=== PATIENT | male | born 1945 | race Caucasian/White ===

== ENCOUNTER → 2017-12-01 09:13 | Outpatient (CLI) | payer OTHER, SELFPAY | PROVIDERS: Family Provider Family Medicine; PCP Family Medicine; Visit Provider Internal Medicine | DX: Z01.812 Encounter for preprocedural laboratory examination (principal) | CPT/HCPCS: 87070; 87205 ==

== ENCOUNTER → 2017-12-01 11:30 | Outpatient (CLI) | payer OTHER, SELFPAY ==
[2017-12-01 12:04] LABS: Add Manual Diff / Slide Review NO; Basophils Percent Auto 0.8 % (0-2); Eosinophils Percent Auto 2.6 % (2-4); Hematocrit 41.2 % (41-53); Hemoglobin 13.8 g/dL (13.5-17.5); Lymphocytes Percent Auto 27.6 % (25-40); Mean Corpuscular HGB Conc 33.4 % (30-36); Mean Corpuscular Hemoglobin 29.4 PG (26-34); Monocytes Percent Auto 10.5 % (3-14); Neutrophils Absolute Auto 3300 /uL (3000-5900); Neutrophils Percent Auto 58.5 % (50-75); Platelet Count 237 X10^3/uL (150-400); Red Blood Cell Count 4.68 X10^6/uL (4.5-5.9); White Blood Cell Count 5.7 X10^3/uL (4.5-11.0)
== END ==
PROVIDERS: Family Provider Family Medicine; PCP Family Medicine; Visit Provider Internal Medicine
DX: Z01.812 Encounter for preprocedural laboratory examination (principal)
CPT/HCPCS: 36415; 85025; 87070; 87205

== ENCOUNTER → 2018-10-12 08:33 | Outpatient (CLI) | payer OTHER, SELFPAY ==
[2018-10-12 09:32] LABS: Alanine Aminotransferase 31 IU/L (21-72); Albumin 4.2 g/dL (3.5-5.0); Albumin Globulin Ratio 1.6 (1.0-2.8); Alkaline Phosphatase 62 U/L (38-126); Aspartate Aminotransferase 23 IU/L (17-59); BUN Creatinine Ratio 34.4 (6-22); Bilirubin Total 0.3 mg/dL (0.2-1.3); Blood Urea Nitrogen 31 mg/dL (9-20); Carbon Dioxide 29 mmol/L (22-32); Chloride 104 mmol/L (98-107); Cholesterol 145 mg/dL (140-199); Estimated Glomerular Filt Rate > 60.0 mL/min (>60); Globulin 2.6 g/dL (1.7-4.1); Glucose 116 mg/dL (80-110); HDL Cholesterol 65 mg/dL (40-60); HEMOLYSIS < 15 (0-50); LDL Cholesterol Calculated 64 mg/dL (<100); Potassium 4.3 mmol/L (3.4-5.1); Sodium 140 mmol/L (137-145); Total Protein 6.8 g/dL (6.3-8.2); Triglycerides 80 mg/dL (35-150)
[2018-10-12 09:56] LABS: Prostate Specific Antigen Scrn 1.02 ng/mL (0.1-4.0)
== END ==
PROVIDERS: PCP Internal Medicine; Visit Provider Internal Medicine
DX: E78.5 Hyperlipidemia, unspecified (principal); R73.9 Hyperglycemia, unspecified; Z12.5 Encounter for screening for malignant neoplasm of prostate
CPT/HCPCS: 36415; 80053; 80061; G0103

== ENCOUNTER 2019-01-18 12:41 | Day surgery (SDC) | payer OTHER, SELFPAY ==
--- NOTE | 2019-01-18 | PATH_ITS ---
[facility] Accession Number: [id number] . 01 Material submitted: . PART A: colon - RIGHT COLON POLYPS PART B: colon - TRANSVERSE COLON POLYP . 02 Diagnosis: A. Biopsy, Polyps, Right Colon: Tubular adenoma involving single biopsy fragment. Single polypoid-shaped fragment of colon mucosa associated with prominent lymphoid aggregate. . B. Biopsy, Transverse Colon Polyp: Tubular adenoma. MRV/01/20/2019 . 02 Electronically signed: . Catrachito Ace MD, Pathologist NPI- [id number] . 01 Gross description: . Part A: RIGHT COLON POLYPS: Received in formalin are 2 fragment(s) of denton, soft tissue measuring 0.5 x 0.3 x 0.2 cm to 0.4 x 0.2 x 0.2 cm submitted entirely in 1 cassette(s) Part B: TRANSVERSE COLON POLYP: Received in formalin is 1 fragment(s) of denton, soft tissue measuring 0.6 x 0.3 x 0.2 cm submitted entirely in 1 cassette(s) /CKI /CKI . 02 Pathologist provided ICD-10: D12.2 . 02 CPT . 008292, [id number] Performed at: 01 [facility] [address], [place], [place] [id number] MD Jered Stokes MD Phone: [phone] Performed at: 02 [facility] [address] [place], [place] [id number] MD Morenita Gibson MD Phone: [phone]
[2019-01-18 12:58] VITALS: BP 142/78; PULSE 63; RESP 14; TEMP 36.2; O2SAT 98; BMI 31.3
--- NOTE | 2019-01-18 14:38 | SUR.PREOP ---
Sleeping with lights dimmed, resp unlabored.
--- NOTE | 2019-01-18 15:34 | PM.HP.1 ---
History of Present Illness Date Patient Seen: 01/18/19 Time Patient Seen: 15:35 Chief complaint: [id number] Narrative: 73-year-old man presents approximately 10 years after last screening colonoscopy -this appeared to have an adenomatous polyp within it, is 5 years overdue for colonoscopy No family history of colon or rectal cancer Tolerated prep well No abdominal complaints Patient History Medical History (Updated 09/30/18 @ 14:19 by Bobby Salazar MD) H/O adenomatous polyp of colon (Inactive) Intraventricular conduction delay (Inactive 10/10/15) Benign prostatic hyperplasia with lower urinary tract symptoms (Chronic 10/10/15) Hyperglycemia (Chronic 09/13/15) Mild intermittent asthma without complication (Chronic 09/13/15) Surgical History (Updated 09/30/18 @ 14:25 by Bobby Salazar MD) S/P shoulder replacement (Inactive ~03/2018) History of third molar tooth extraction Family History (Updated 09/12/15 @ 00:00 by Conversion Provider) Brother Pacemaker Father Pacemaker Heart disease Stroke Social History household members: spouse Smoking Status: Never smoker Family & Social History Family History (Updated 09/12/15 @ 00:00 by Conversion Provider) Brother Pacemaker Father Pacemaker Heart disease Stroke Social History: household members spouse Tobacco & Substance use: Smoking Status Never smoker Meds Home Medications Medication Instructions Recorded Confirmed Type [aspirin] 325 mg #0 09/17/17 10/21/18 History [quericin] #0 09/17/17 10/21/18 History albuterol sulfate HFA 90 See Rx Instructions INHALATION 09/30/18 01/18/19 Rx mcg/actuation aerosol inhaler Q4-6H PRN #8.5 gram rosuvastatin 10 mg tablet 10 mg PO QDAY #90 tab 09/30/18 01/18/19 Rx tamsulosin 0.4 mg capsule 0.4 mg PO DAILY #90 cap 09/30/18 01/18/19 Rx metoprolol succinate ER 25 mg 12.5 mg PO DAILY #30 tab 10/29/18 01/18/19 Rx tablet,extended release 24 hr Allergies Allergy/AdvReac Type Severity Reaction Status Date / Time simvastatin AdvReac Mild memory Verified 10/21/18 15:11 issues, okay with Crestor Review of Systems Constitutional Constitutional: Denies fever(s) Eyes Eyes: Denies bulging eyes ENT Ears, Nose, Mouth, and Throat: No lip swelling Cardiovascular Cardiovascular: Denies generalize swelling Respiratory Respiratory: Denies stridor Gastrointestinal Gastrointestinal: Denies coffee ground emesis Musculoskeletal Musculoskeletal: Denies loss of height Integumentary/Breasts Skin/Breast: Denies wounds Neurologic Neurologic: Denies abnormal speech and Denies confusion Psychiatric Psychiatric: Denies confusion Endocrine Endocrine: Denies deepening of the voice Hematologic/Lymphatic Hematologic/Lymphatic: Denies lymphadenopathy Allergic/Immunologic Allergic/Immunologic: Denies lip swelling Exam Vital Signs (past 8 hours): - 01/18/19 12:58 Temperature 97.1 F L Pulse Rate 63 Respiratory Rate 14 Blood Pressure 142/78 H Pulse Oximetry 98 Oxygen Delivery Method Room Air Const General: cooperative and healthy appearing Orientation: alert HENMA Head: normal to inspection Nose: nares normal Mouth: oral mucosae normal and lip normal Eyes Eyelids: eyelids normal Conjunctivae: conjunctivae normal Sclera: sclerae normal Neck Neck: supple and other (No thyromegally) Chest Chest: other (LCTAB , regular respiratory effort) Cardio Rhythm: regular rhythm Heart Sounds: S1 normal, S2 normal, no gallops, no murmurs and no rubs GI Other: Abdomen soft nontender nondistended Skin General: no rashes or lesions noted Neuro General: alert and awake Psych Appearance: grossly normal Affect: normal affect Assessment & Plan Assessment & Plan narrative: 73-year-old man approximately 5 years overdue for screening colonoscopy Risks and benefits of procedure discussed Risks including bleeding, , perforation, hypoxia, missed lesions all discussed All questions answered Patient rated proceed
[2019-01-18] MEDS: MIDAZOLAM 5 MG/5 ML VIAL IV (15:43)
[2019-01-18] MEDS: fentaNYL 250 MCG/5 ML INJ IV (15:43)
--- NOTE | 2019-01-18 15:47 | SUR.OPER ---
TOLERATED WELL, PATIENT STATES HE DOES NOT HAVE A TRUE ALLERGY AND DOES NOT TAKE A BETA DELIA ANY MORE, VITAL SIGNS STABLE SEE STRIPS OCCASIONAL PVC
[2019-01-18] MEDS: GLUCAGON,HUMAN RECOMBINANT 1 MG/ML VIAL IV (16:03)
--- NOTE | 2019-01-18 16:14 | PM.OP.ENDO ---
Operative Date/Time/Diagnoses Date of procedure: 01/18/19 Time of procedure: 16:14 Pre-op diagnosis: Colorectal cancer screening Post-op diagnosis: same Procedure & Clinicians Study performed: Screening colonoscopy-complete Right colon polypectomy x2 cold biopsy forceps Transverse colon polypectomy x1 cold biopsy forceps Same procedure as scheduled: Yes Indications: 73-year-old man presents 10 years after last screening colonoscopy -due to prior history of adenomatous colon polyps -5 years now overdue Surgeon: Simeon Helton Procedure Notes SCOAP/Timeout: Completed Procedure in detail: Patient was brought to the endoscopy suite, a time-out was completed. He was sedated over the entire course of the procedure with 5 mg of midazolam and 150 micro g of fentanyl. A digital rectal exam was performed which was notable for a large soft prostate. No mucosal based lesions. 160 cm colonoscope was advanced through the rectum and folds of the colon until the cecum was encountered. There was a floppy sigmoid colon which did take an unusual amount of time to transit through. The cecum was identified via a ileocecal valve which was seen to be admitting succus, a appendiceal orifice as well was visualized. Colonoscope was then slowly withdrawn. Visualizing the mucosa 2 small sessile polyps were removed via a Jumbo biopsy forcep within the right colon. An additional small sessile polyp was removed in the transverse colon again with the Jumbo biopsy forceps. The remainder of the colon rectum was without polyps however there was a moderate amount of sigmoid diverticulosis. The scope was retroflexed in the distal rectum no additional lesions were encountered Prep was adequate Scope withdrawal time: 22 Sedation minutes: 34 Specimen(s): other (Right colon polyps x2, transverse colon polyp x1) Complications: none Impression: Enlarged prostate Sigmoid diverticulosis -moderate Right colon polyp polyp x2, transverse colon polyp x1 -status post removal Recommendations: Colonscopy in 5 years Plan for aftercare: PACU then home Follow up: as needed Disposition: PACU
[2019-01-18 16:21] VITALS: BP 125/56; PULSE 65; RESP 22; O2SAT 97
[2019-01-18 16:25] VITALS: BP 141/59; PULSE 65; RESP 12; O2SAT 97
[2019-01-18 16:30] VITALS: BP 135/60; PULSE 62; RESP 17; O2SAT 96
[2019-01-18 16:45] VITALS: BP 123/67; PULSE 63; RESP 18; TEMP 36.4; O2SAT 96
== END 2019-01-18 17:06 | disposition home or self-care (01) ==
LOC: ENDO 12:42
PROVIDERS: PCP Internal Medicine; Visit Provider Surgery
PROC: 0DJD8ZZ Inspection of Lower Intestinal Tract, Via Natural or Artificial Opening Endoscopic (ICD-10-PCS; CPT 45378; principal; 2019-01-18 14:00)
DX: Z12.11 Encounter for screening for malignant neoplasm of colon (principal); K57.30 Diverticulosis of large intestine without perforation or abscess without bleeding; N40.1 Benign prostatic hyperplasia with lower urinary tract symptoms; D12.2 Benign neoplasm of ascending colon
CPT/HCPCS: 45380; 99152; 99153; J1610; J2250; J3010

== ENCOUNTER → 2019-07-04 10:55 | Outpatient (CLI) | payer OTHER, SELFPAY ==
--- NOTE | 2019-07-25 17:06 | PM.CARDMON.1 ---
Personnel Security Specialist Report Referral & Results Date Patient Seen: 07/04/19 Requesting provider: Bobby Salazar Indication: Bradycardia Duration of monitoring (days): 14 Diary information: There were 2 patient triggered events and 1 diary entry These events were all associated with sinus rhythm, PVCs, and ventricular bigeminy Data: Minimum heart rate was 22 beats per minute at 02:13 on 07/11/2019 during a run of second-degree AV block type 1. Maximum overall heart rate was 182 beats per minute at 16:56 on 07/12/2019 during a run of ventricular tachycardia that was 16 beats long Minimum sinus heart rate was 51 beats per minute at 04:32 on 07/15/2019 and maximum sinus heart rate was 133 beats per minute at 01:25 on 07/12/2019 Less than 1% of identified beats were supraventricular ectopic in origin Patient had occasional PVCs that were about 4.9% of identified beats including some runs of ventricular bigeminy and ventricular trigeminy Patient had several runs of ventricular tachycardia, specifically 38 runs longest of which was 16 beats which was also the fastest run. There were 11 runs of supraventricular tachycardia the longest lasting 9 beats at a rate of 133 beats per minute There are several episodes of second-degree AV block type 1. This was identified by the computer is potentially third-degree AV block but upon closer inspection appears to be most likely second-degree AV block type 1 although cannot rule out second-degree AV block type to given that there episodes where every other beat was blocked. However patient did not identify these episodes with symptoms via patient triggered events or diary entries Impression: Significant burden of ventricular dysrhythmia as above Significant interventricular conduction block as well with resulting bradycardia. Suggest clinical correlation and probable consultation with supervisor cabinetmaker
== END ==
PROVIDERS: PCP Internal Medicine; Visit Provider Family Medicine
DX: I49.3 Ventricular premature depolarization (principal)
CPT/HCPCS: 0296T; 0298T

== ENCOUNTER → 2019-07-05 07:12 | Outpatient (CLI) | payer OTHER, SELFPAY ==
--- NOTE | 2019-07-05 07:13 | DI.ECHO.S_ITS ---
[place] +---------+ [facility] +---------+ : : [address] : [address] : : : : [id number] : : : : Phone: [phone]+ Echocardiogram Report + + :Name: JAVIER HAMILTON Study Date: 07/05/2019 Height: 70 in : :[facility] Weight: 220 lb : : Gender: Male BSA: 2.2 m2 : :: 1945 Age: 74 yrs BP: 144/78 mmHg: :Reason For Study: Arrhythmia : :Ordering Physician: Dr. Rosales : :Martin Performed By: Royce Sampson : :Referring: FERMIN MUELLER R : + + Interpretation Summary Left ventricular systolic function is normal. There is trace mitral regurgitation. The aortic root is borderline dilated. Procedure: A two-dimensional transthoracic echocardiogram with color flow and Doppler was performed. The study quality was technically adequate. There is no prior echocardiogram noted for this patient. The heart rate ranged between 38-95 bpm during the study. Left Ventricle: The left ventricle is normal in size. There is mild concentric left ventricular hypertrophy. Left ventricular systolic function is normal. The ejection fraction is estimated to be 55-60%. Left ventricular wall motion is normal. Right Ventricle: The right ventricle is borderline dilated. The right ventricular systolic function is normal. Atria: The left atrium is mildly dilated. The right atrium is mildly dilated. The interatrial septum is intact with no evidence for an atrial septal defect. Mitral Valve: The mitral valve is normal in structure and function. There is trace mitral regurgitation. Aortic Valve: The aortic valve is trileaflet. The aortic valve opens well. No aortic regurgitation is present. Tricuspid Valve: The tricuspid valve is normal in structure and function. There is trace tricuspid regurgitation. Pulmonary artery pressures cannot be estimated because of the lack of a measurable TR jet velocity. Pulmonic Valve: The pulmonic valve is not well visualized. There is trace pulmonic regurgitation. Great Vessels: The aortic root is borderline dilated. The dimensions of the ascending aorta are normal. The pulmonary artery is normal size. The IVC is dilated (diameter is greater than 2.1 cm) yet it collapses greater than 50% with a sniff. This suggests a right atrial pressure of 8 mm Hg. Pericardium/ Pleura There is no pericardial effusion. There is no pleural effusion. MMode/2D Measurements & Calculations LVIDd: 5.0 cm LVOT diam: 2.4 cm LVIDs: 3.3 cm Ao root diam: 3.7 cm FS: 34.8 % asc Aorta Diam: 3.5 cm EPSS: 0.90 cm IVSd: 1.2 cm LVPWd: 1.1 cm LV meza. diameter/BSA (cm/m^2): 2.3 LV sys. diameter/BSA (cm/m^2): 1.5 LA A2 area: 22.8 cm2 RA long axis: 5.4 cm LA A4 area: 26.9 cm2 RA area: 21.3 cm2 LA length (vol): 6.0 cm RA vol: 70.8 ml LA vol: 86.5 ml RA : 32.6 ml/m2 LA vol index: 39.8 ml/m2 TAPSE: 3.9 cm Doppler Measurements & Calculations Ao V2 max: 138.3 cm/sec LVOT Max Fany: 107.6 cm/sec Ao V2 mean: 96.4 cm/sec LV V1 max P.6 mmHg Ao max P.6 mmHg LV V1 VTI: 23.0 cm Ao mean P.3 mmHg OLEG(I,D): 3.3 cm2 Ao V2 VTI: 30.6 cm OLEG(V,D): 3.4 cm2 sev ratio: 0.75 OLEG indexed to BSA (cm^2/m^2): 1.5 MV E max fany: 72.0 cm/sec PA V2 max: 61.1 cm/sec MV A max fany: 111.1 cm/sec PA V2 mean: 43.2 cm/sec MV E/A: 0.65 PA mean P.84 mmHg Med Peak E' Fany: 4.7 cm/sec PA Accel Time: 0.10 sec E/E' med: 15.2 Lat Peak E' Fany: 6.0 cm/sec E/E' lat: 12.1 E/e' average: 13.6 MV dec time: 0.25 sec SV(LVOT): 101.5 ml Reading Physician:01:43 PM
== END ==
PROVIDERS: PCP Internal Medicine; Visit Provider Internal Medicine
DX: I49.9 Cardiac arrhythmia, unspecified (principal); I45.9 Conduction disorder, unspecified
CPT/HCPCS: 93306

== ENCOUNTER → 2020-03-05 07:47 | Outpatient (CLI) | payer OTHER, SELFPAY ==
[2020-03-05 08:27] LABS: BUN Creatinine Ratio 18.9 (6-22); Blood Urea Nitrogen 20 mg/dL (9-20); Carbon Dioxide 33 mmol/L (22-32); Chloride 102 mmol/L (98-107); Estimated Glomerular Filt Rate > 60.0 mL/min (>60); Glucose 103 mg/dL (80-110); HEMOLYSIS < 15 (0-50); Potassium 4.9 mmol/L (3.4-5.1); Sodium 137 mmol/L (137-145)
== END ==
PROVIDERS: PCP Internal Medicine; Referring Provider Internal Medicine; Visit Provider Internal Medicine
DX: I49.3 Ventricular premature depolarization (principal)
CPT/HCPCS: 36415; 80048

== ENCOUNTER → 2020-07-18 09:54 | Outpatient (CLI) | payer OTHER, SELFPAY ==
[2020-07-18] MEDS: COVID-19 VACC #1, MRNA(MOD) 100 MCG/0.5 ML VIAL IM (10:01)
== END ==
PROVIDERS: PCP Internal Medicine; Visit Provider Internal Medicine
DX: Z23 Encounter for immunization (principal)
CPT/HCPCS: 0011A; 91301

== ENCOUNTER → 2020-08-15 09:54 | Outpatient (CLI) | payer OTHER, SELFPAY ==
[2020-08-15] MEDS: COVID-19 VACC #2, MRNA(MOD) 100 MCG/0.5 ML VIAL IM (10:01)
== END ==
PROVIDERS: PCP Internal Medicine; Visit Provider Internal Medicine
DX: Z23 Encounter for immunization (principal)
CPT/HCPCS: 0012A; 91301

== ENCOUNTER → 2022-01-08 08:57 | Outpatient (CLI) | payer OTHER, SELFPAY ==
[2022-01-08 09:45] LABS: COVID19 -Nasal RAPID Negative (Negative)
== END ==
PROVIDERS: PCP Internal Medicine; Referring Provider Internal Medicine Cardiovascular Disease; Visit Provider Internal Medicine Cardiovascular Disease
DX: Z20.822 Contact with and (suspected) exposure to COVID-19 (principal)
CPT/HCPCS: 87635; C9803

== ENCOUNTER → 2022-01-09 14:02 | Outpatient (CLI) | payer OTHER, SELFPAY ==
--- NOTE | 2022-01-15 10:58 | PM.PFT.1 ---
Pulmonary Function Test Referral & Results Date Patient Seen: 01/09/22 Requesting provider: Shade Kevin Results: The spirometry demonstrates an FVC of 3.58 L which is 85% of predicted. The FEV1 was measured at 2.59 L which is 86% of predicted. The FEV1/FVC ratio was 72 which is 100% of predicted. Following the administration of bronchodilator there was a 25% improvement in FEF 25-75%. Lung volumes show an SVC of 3.97 L which is 88% of predicted. The diffusing capacity was measured at 25.19 which is 77% of predicted. No hemoglobin value was provided, so no correction for potential anemia could be made, if appropriate. The maximum voluntary ventilation was normal Interpretation: This study demonstrates probably normal spirometry. There is some evidence of benefit following bronchodilator in small airway flow as above based on improvement in FEF 25-75% There is a minimal reduction diffusing capacity suggesting the possibility of disease at the capillary alveolar level Clinical correlation suggested
== END ==
PROVIDERS: PCP Internal Medicine; Referring Provider Internal Medicine Cardiovascular Disease; Visit Provider Internal Medicine Cardiovascular Disease
DX: I45.4 Nonspecific intraventricular block (principal); J98.8 Other specified respiratory disorders
CPT/HCPCS: 94060; 94726; 94729

== ENCOUNTER → 2022-01-27 09:13 | Outpatient (CLI) | payer OTHER, SELFPAY ==
--- NOTE | 2022-01-27 | DI.ECHO.S_ITS ---
[place] +---------+ Hospital +---------+ : : [address] : : : [address] : : : : [id number] : : : : Phone: [phone] : [phone]+ Echocardiogram Report + + :Name: JAVIER HAMILTON Study Date: 01/27/2022 Height: 70 in : :[facility] ReadingLocation: Weight: 220 lb : : Gender: Male BSA: 2.2 m2 : :: 1945 Age: 76 yrs BP: 142/73 mmHg: :Reason For Study: Intraventricular block : :Ordering Physician: Chano, : :Juany Performed By: Kris Ortiz : :Referring: Juany Madden : + + Interpretation Summary 1) Normal left ventricular size and thickness with moderately to severely reduced function (EF 30-35%). 2) The right ventricle is normal in size and function. 3) No significant valvular abnormalities. 4) Compared to the Echo done 07/05/2019, LV function has decreased from normal to moderately to severely reduced function. Procedure: A two-dimensional transthoracic echocardiogram with color flow and Doppler was performed. The study quality was technically adequate. Comparison is made with the echocardiogram of 07/05/2019. The patient has a paced rhythm. Left Ventricle: The left ventricle is normal in size and wall thickness. Left ventricular systolic function is moderate to severely reduced. The ejection fraction is estimated to be 30-35%. There is moderate to severe global hypokinesis of the left ventricle. Diastolic function could not be accurately assessed due to paced rhythm. Right Ventricle: The right ventricle is normal in size and function. Atria: The left atrium is moderately dilated. Right atrial size is normal. The interatrial septum grossly appears intact with no obvious evidence for an atrial septal defect. The atrial septum is aneurysmal. Mitral Valve: The mitral valve is normal in structure and function. There is mild mitral regurgitation. Aortic Valve: The aortic valve is normal in structure and function. There is no aortic valve stenosis. No aortic regurgitation is present. Tricuspid Valve: The tricuspid valve is normal in structure and function. There is trace tricuspid regurgitation. The right ventricular systolic pressure is estimated to be at least 27 mmHg based on an estimated right atrial pressure of 3 mm Hg. Pulmonic Valve: The pulmonic valve is normal in structure and function. There is a trace or physiologic amount of pulmonic regurgitation. Great Vessels: The aortic root is normal size. The dimensions of the ascending aorta are normal. The IVC is of normal diameter and collapses greater than 50% with a sniff. This suggests a low right atrial pressure of 3 mm Hg. Pericardium/ Pleura There is no pericardial effusion. There is no pleural effusion. MMode/2D Measurements & Calculations LVIDd: 5.9 cm LVOT diam: 2.4 cm LVIDs: 4.8 cm Ao root diam: 3.9 cm FS: 18.9 % asc Aorta Diam: 3.4 cm IVSd: 1.2 cm LVPWd: 0.96 cm LV meza. diameter/BSA (cm/m^2): 2.7 LV sys. diameter/BSA (cm/m^2): 2.2 LA A2 area: 18.6 cm2 RA long axis: 4.6 cm LA A4 area: 25.2 cm2 RA area: 14.9 cm2 LA length (vol): 5.3 cm RA vol: 41.2 ml LA vol: 75.5 ml RA : 18.9 ml/m2 LA vol index: 34.7 ml/m2 TAPSE: 3.4 cm Doppler Measurements & Calculations Ao V2 max: 133.0 cm/sec LVOT Max Declan: 96.0 cm/sec Ao V2 mean: 94.6 cm/sec LV V1 max P.7 mmHg Ao max P.1 mmHg LV V1 VTI: 19.3 cm Ao mean P.9 mmHg OLEG(I,D): 3.4 cm2 Ao V2 VTI: 25.2 cm OLEG(V,D): 3.2 cm2 sev ratio: 0.77 OLEG indexed to BSA (cm^2/m^2): 1.5 MV E max declan: 42.3 cm/sec TR max declan: 242.2 cm/sec MV A max declan: 99.7 cm/sec TR max P.5 mmHg MV E/A: 0.42 Med Peak E' Declan: 2.7 cm/sec E/E' med: 15.9 Lat Peak E' Declan: 2.5 cm/sec E/E' lat: 16.9 E/e' average: 16.4 MV dec time: 0.36 sec SV(LVOT): 84.8 ml Reading Physician:02:05 PM
== END ==
PROVIDERS: PCP Internal Medicine; Referring Provider Nurse Practitioner Acute Care; Visit Provider Nurse Practitioner Acute Care
DX: I34.0 Nonrheumatic mitral (valve) insufficiency (principal); I45.4 Nonspecific intraventricular block; Z95.0 Presence of cardiac pacemaker
CPT/HCPCS: 93306

== ENCOUNTER → 2022-09-30 08:27 | Outpatient (CLI) | payer OTHER, SELFPAY ==
[2022-09-30 09:16] LABS: Alanine Aminotransferase 28 IU/L (<50); Albumin Globulin Ratio 1.6 (1.0-2.8); Alkaline Phosphatase 74 U/L (38-126); Aspartate Aminotransferase 23 IU/L (17-59); BUN Creatinine Ratio 26.5 (6-22); Bilirubin Total 0.4 mg/dL (0.2-1.3); Blood Urea Nitrogen 26 mg/dL (9-20); Calcium 8.8 mg/dL (8.4-10.2); Carbon Dioxide 28 mmol/L (22-32); Chloride 101 mmol/L (98-107); Cholesterol 168 mg/dL (140-199); Estimated Glomerular Filt Rate > 60 mL/min (>60); Globulin 2.5 g/dL (1.7-4.1); Glucose 105 mg/dL (80-110); HDL Cholesterol 97 mg/dL (40-60); HEMOLYSIS < 15 (0-50); LDL Cholesterol Calculated 60 mg/dL (<100); Potassium 4.6 mmol/L (3.4-5.1); Sodium 137 mmol/L (137-145); Total Protein 6.5 g/dL (6.3-8.2); Triglycerides 56 mg/dL (35-150)
[2022-09-30 09:50] LABS: Thyroid Stimulating Hormone 1.88 uIU/mL (0.47-4.68)
== END ==
PROVIDERS: PCP Internal Medicine; Referring Provider Internal Medicine; Visit Provider Internal Medicine
DX: E78.2 Mixed hyperlipidemia (principal); I48.0 Paroxysmal atrial fibrillation; J45.20 Mild intermittent asthma, uncomplicated; Z79.899 Other long term (current) drug therapy
CPT/HCPCS: 36415; 80053; 80061; 84439; 84443

== ENCOUNTER → 2023-07-02 16:37 | Outpatient (CLI) | payer OTHER, SELFPAY ==
--- NOTE | 2023-07-02 16:40 | DI.RAD.S_ITS ---
PROCEDURE: XR ABDOMEN MIN 2V INDICATIONS: discomfort LUQ after pacemaker surgery in Aug TECHNIQUE: 2 views of the abdomen were acquired. COMPARISON: None. FINDINGS: Surgical changes and devices: None. Bowel: The bowel gas pattern is normal. No evidence of bowel obstruction. Expected stool projects over the colon. Soft tissues: Visualized solid organ contours appear normal in size. No suspicious abdominal calcifications. 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 on 07/03/2023 at 11:31 Approved by: Antoine Smith M.D. on 07/03/2023 at 11:37
== END ==
PROVIDERS: PCP Internal Medicine; Referring Provider Physician Assistant; Visit Provider Physician Assistant
DX: R10.9 Unspecified abdominal pain (principal)
CPT/HCPCS: 74019

== ENCOUNTER → 2023-10-22 15:28 | Outpatient (CLI) | payer OTHER, SELFPAY ==
[2023-10-22 17:00] LABS: Add Manual Diff / Slide Review NO; Basophils Absolute Auto 100 /uL (0-100); Basophils Percent Auto 1.1 % (0-2); Eosinophils Absolute Auto 300 /uL (0-450); Eosinophils Percent Auto 4.9 % (2-4); Hematocrit 36.4 % (41-53); Hemoglobin 11.9 g/dL (13.5-17.5); Lymphocytes Absolute Auto 1400 /uL (1100-4500); Lymphocytes Percent Auto 23.7 % (25-40); Mean Corpuscular HGB Conc 32.7 % (30-36); Mean Corpuscular Volume 82.8 fL (80-100); Monocytes Absolute Auto 600 /uL (0-900); Monocytes Percent Auto 9.7 % (3-14); Neutrophils Absolute Auto 3500 /uL (1500-7000); Neutrophils Percent Auto 60.6 % (50-75); Platelet Count 224 X10^3/uL (150-400); White Blood Cell Count 5.7 X10^3/uL (4.5-11.0)
[2023-10-22 17:41] LABS: HEMOLYSIS < 15 (0-50); Iron 60 ug/dL (49-181)
[2023-10-22 17:52] LABS: Percent Iron Saturation 18 % (20-50); Total Iron Binding Capacity 330 ug/dL (261-462); Transferrin 258 mg/dL (206-381)
[2023-10-22 18:12] LABS: Alanine Aminotransferase 19 IU/L (<50); Albumin 4.2 g/dL (3.5-5.0); Albumin Globulin Ratio 1.6 (1.0-2.8); Alkaline Phosphatase 82 U/L (38-126); Aspartate Aminotransferase 23 IU/L (17-59); BUN Creatinine Ratio 26.3 (6-22); Bilirubin Total 0.5 mg/dL (0.2-1.3); Blood Urea Nitrogen 30 mg/dL (9-20); Calcium 9.1 mg/dL (8.4-10.2); Carbon Dioxide 28 mmol/L (22-32); Chloride 108 mmol/L (98-107); Estimated Glomerular Filt Rate > 60 mL/min (>60); Globulin 2.6 g/dL (1.7-4.1); Glucose 96 mg/dL (80-110); HEMOLYSIS < 15 (0-50); Potassium 4.1 mmol/L (3.4-5.1); Sodium 140 mmol/L (137-145); Total Protein 6.8 g/dL (6.3-8.2)
== END ==
PROVIDERS: PCP Internal Medicine; Referring Provider Internal Medicine; Visit Provider Internal Medicine
DX: D64.9 Anemia, unspecified (principal); E78.2 Mixed hyperlipidemia
CPT/HCPCS: 36415; 80053; 83540; 83550; 85025

== ENCOUNTER → 2023-10-22 15:31 | Outpatient (CLI) | payer OTHER, SELFPAY ==
--- NOTE | 2023-10-22 | DI.ECHO.S_ITS ---
[place] +---------+ Hospital : : [address] : : [place] : : [id number] : : Phone: [phone] Echocardiogram Report + + :Name: JAVIER HAMILTON Study Date: 10/22/2023 Height: 70 in : :[facility] ReadingLocation: Weight: 220 lb : : Gender: Male BSA: 2.2 m2 : :: 1945 Age: 78 yrs BP: 154/76 mmHg: :Reason For Study: DILATED CARDIOMYOPATHY : :Ordering Physician: MATT, : :GIGI Performed By: Albino Robbins : :Referring: GIGI GUTIERREZ : + + Interpretation Summary The ejection fraction is estimated to be 35-40%. There is mild to moderate global hypokinesis of the left ventricle. There is inferior wall severe hypokinesis. There has been no significant change since the previous exam. The right ventricle is mildly dilated. There is a pacemaker lead in the right ventricle. The right ventricular systolic pressure is estimated to be at least 29 mmHg based on an estimated right atrial pressure of 8 mm Hg. Procedure: A two-dimensional transthoracic echocardiogram with color flow and Doppler was performed. The study quality was technically adequate. Comparison is made with the echocardiogram of 01/27/2022. The heart rate ranged between 60-84 bpm during the study. Left Ventricle: The left ventricle is mild-moderately dilated. There is mild concentric left ventricular hypertrophy. The ejection fraction is estimated to be 35-40%. There has been no significant change since the previous exam. There is mild to moderate global hypokinesis of the left ventricle. There is inferior wall severe hypokinesis. Right Ventricle: The right ventricle is mildly dilated. There is a pacemaker lead in the right ventricle. The right ventricular systolic function is normal. Atria: The left atrium is severely dilated. The right atrium is mildly dilated. There is a catheter/pacemaker lead seen in the right atrium. Mitral Valve: The mitral valve is normal in structure and function. There is no mitral valve stenosis. There is trace mitral regurgitation. Aortic Valve: The aortic valve is trileaflet. There is no aortic valve stenosis. No aortic regurgitation is present. Tricuspid Valve: The tricuspid valve is normal in structure and function. There is no tricuspid stenosis. There is trace tricuspid regurgitation. The right ventricular systolic pressure is estimated to be at least 29 mmHg based on an estimated right atrial pressure of 8 mm Hg. Pulmonic Valve: The pulmonic valve is not well visualized. There is no pulmonic valvular stenosis. There is no pulmonic valvular regurgitation. Great Vessels: The aortic root is borderline dilated. The dimensions of the ascending aorta are normal. The IVC is dilated (diameter is greater than 2.1 cm) yet it collapses greater than 50% with a sniff. This suggests a right atrial pressure of 8 mm Hg. Pericardium/ Pleura There is no pericardial effusion. There is no pleural effusion. MMode/2D Measurements & Calculations LVIDd: 6.6 cm LVOT diam: 2.4 cm LVIDs: 5.3 cm Ao root diam: 3.7 cm FS: 19.8 % asc Aorta Diam: 3.4 cm IVSd: 1.1 cm Ao Arch Diam (Prox Trans): 3.1 cm LVPWd: 1.2 cm LV meza. diameter/BSA (cm/m^2): 3.0 LV sys. diameter/BSA (cm/m^2): 2.4 LA A2 area: 25.4 cm2 RA long axis: 5.5 cm LA A4 area: 24.0 cm2 RA area: 19.2 cm2 LA length (vol): 5.6 cm RA vol: 57.5 ml LA vol: 92.7 ml RA : 26.4 ml/m2 LA vol index: 42.7 ml/m2 IVC diam: 2.1 cm RVD1 (basal): 4.1 cm RVD2 (mid): 2.7 cm TAPSE: 3.2 cm Doppler Measurements & Calculations Ao V2 max: 156.2 cm/sec LVOT Max Declan: 102.0 cm/sec Ao V2 mean: 112.5 cm/sec LV V1 max P.2 mmHg Ao max P.8 mmHg LV V1 VTI: 22.3 cm Ao mean P.6 mmHg OLEG(I,D): 2.7 cm2 Ao V2 VTI: 36.4 cm OLEG(V,D): 2.9 cm2 sev ratio: 0.61 OLEG indexed to BSA (cm^2/m^2): 1.2 MV E max declan: 44.4 cm/sec TR max declan: 231.4 cm/sec MV A max declan: 104.0 cm/sec TR max P.6 mmHg MV E/A: 0.43 PA V2 max: 99.1 cm/sec Med Peak E' Declan: 3.9 cm/sec PA V2 mean: 71.3 cm/sec E/E' med: 11.4 PA mean P.3 mmHg Lat Peak E' Declan: 3.8 cm/sec PA pr(Accel): 39.6 mmHg E/E' lat: 11.7 E/e' average: 11.6 MV dec time: 0.29 sec SV(LVOT): 98.6 ml Reading Physician:10:45 AM
== END ==
PROVIDERS: PCP Internal Medicine; Referring Provider Internal Medicine Cardiovascular Disease; Visit Provider Internal Medicine Cardiovascular Disease
DX: I42.0 Dilated cardiomyopathy (principal); Z95.0 Presence of cardiac pacemaker; D64.9 Anemia, unspecified; E78.2 Mixed hyperlipidemia
CPT/HCPCS: 36415; 80053; 83540; 83550; 85025; 93306

== ENCOUNTER → 2023-11-04 10:41 | Outpatient (CLI) | payer OTHER, SELFPAY | PROVIDERS: PCP Internal Medicine; Visit Provider Nurse Practitioner Family | DX: J02.9 Acute pharyngitis, unspecified (principal) | CPT/HCPCS: 87070 ==

== ENCOUNTER → 2023-12-23 07:40 | Outpatient (CLI) | payer OTHER, SELFPAY ==
--- NOTE | 2023-12-23 07:41 | DI.ECHO.S_ITS ---
[facility]---------+ [facility] : : [address] : : [place] : : [id number] : : Phone: [phone] Echocardiogram Report + + :Name: JAVIER HAMILTON Study Date: 12/23/2023 Height: 70 in : :Hospital ReadingLocation: Weight: 218 lb : : Gender: Male BSA: 2.2 m2 : :: 1945 Age: 78 yrs BP: 141/74 mmHg: :Reason For Study: DILATED CARDIOMYOPATHY : :Ordering Physician: Sylvester GUTIERREZformed By: Melani Alvarez : :Referring: GIGI GUTIERREZ : + + Interpretation Summary 1. This is a limited echocardiogram. 2. The left ventricular contractility is moderately compromised. Estimated ejection fraction is approximately 35 to 40%. There is severe hypokinesis of the inferior segment. No LVH. Unable to comment on diastolic function. 3. The right ventricular contractility is normal. 4. The left ventricular cavity appears to be dilated. 5. Hyper echogenic linear densities noted in the right atrium and right ventricle consistent with pacemaker wires. No other obvious intracardiac masses nor thrombi appreciated. 6. No hemodynamically significant pericardial effusion identified. Conclusion: Moderately compromised left ventricular systolic function. When compared with previous echocardiogram, no significant changes have occurred. Procedure: Images were not obtained from all of the standard acoustic windows due to the limited scope of the study. The study quality was technically adequate. Comparison is made with the echocardiogram of 10/22/2023. The patient had occasional PVCs during the exam. The heart rate ranged between 60-65 bpm during the study. Left Ventricle: The left ventricle is mild-moderately dilated. There is normal left ventricular wall thickness. The ejection fraction is estimated to be 35-40%. Right Ventricle: The right ventricle is normal in size and function. There is a pacemaker lead in the right ventricle. Atria: There is a catheter/pacemaker lead seen in the right atrium. Pericardium/ Pleura There is no pericardial effusion. There is no pleural effusion. MMode/2D Measurements & Calculations LVIDd: 6.7 cm RVD1 (basal): 3.7 cm LVIDs: 5.3 cm RVD2 (mid): 2.1 cm FS: 19.9 % TAPSE: 2.9 cm IVSd: 0.86 cm LVPWd: 1.0 cm LV meza. diameter/BSA (cm/m^2): 3.1 LV sys. diameter/BSA (cm/m^2): 2.5 Reading Physician:
== END ==
PROVIDERS: PCP Internal Medicine; Referring Provider Internal Medicine Cardiovascular Disease; Visit Provider Internal Medicine Cardiovascular Disease
DX: I42.0 Dilated cardiomyopathy (principal); Z95.0 Presence of cardiac pacemaker
CPT/HCPCS: 93307

== ENCOUNTER → 2024-01-28 12:58 | Outpatient (CLI) | payer OTHER, SELFPAY ==
--- NOTE | 2024-01-28 13:00 | DI.RAD.S_ITS ---
PROCEDURE: XR RIBS RT MIN 3V W CXR 1V INDICATIONS: Right rib pain after fall TECHNIQUE: 4 views of the ribs were acquired, along with a single view chest. COMPARISON: None. FINDINGS: Surgical changes and devices: Left chest wall pulse generator with electrode leads. Right shoulder arthroplasty partially seen Bones and chest wall: Possible minimally displaced fractures at the lateral aspect of the right 9th and 10th ribs adjacent to the BB marker. Lungs and pleura: Bibasilar opacities, possibly atelectasis. Mediastinum: Heart size is at the upper limit of normal IMPRESSION: Possible minimally displaced fractures at the lateral aspect of the right 9th and 10th ribs. If there is high concern for occult injury, consider repeat radiography or cross-sectional imaging. Dictated by: Serjio Scott M.D. on 01/28/2024 at 13:27 Approved by: Serjio Scott M.D. on 01/28/2024 at 13:28
== END ==
PROVIDERS: PCP Internal Medicine; Referring Provider Physician Assistant Medical; Visit Provider Physician Assistant Medical
DX: R07.81 Pleurodynia (principal)
CPT/HCPCS: 71101

== ENCOUNTER → 2024-02-17 08:40 | Outpatient (CLI) | payer OTHER, SELFPAY ==
--- NOTE | 2024-02-17 08:41 | DI.RAD.S_ITS ---
PROCEDURE: XR SHOULDER RT MIN 2V INDICATIONS: Right shoulder strain TECHNIQUE: 3 views of the shoulder were acquired. COMPARISON: [facility], CR, XR CHEST 1 VIEW, 02/09/2023, 16:30. [facility], CR, XR RIBS RT MIN 3V W CXR 1V, 01/28/2024, 13:11. FINDINGS: Bones: Status post right shoulder arthroplasty. Stable alignment. No evidence for hardware loosening or failure. No acute fractures or dislocations. 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 Visualized right ribs appear intact. No suspicious bony lesions. Visualized ribs appear intact. Soft tissues: No suspicious soft tissue calcifications. Visualized portions of the lungs are clear. IMPRESSION: Right shoulder without acute fracture or dislocation. Stable appearance of right shoulder arthroplasty without evidence for hardware complication. Stable appearance of moderate hypertrophic osteoarthritic changes of the right acromioclavicular joint. If there are persistent symptoms or clinical suspicion for pathology, then repeat radiographs or advanced imaging (CT or MRI) may be considered for further evaluation. Dictated by: Fermin Calhoun M.D. on 02/17/2024 at 12:24 Approved by: Fermin Calhoun M.D. on 02/17/2024 at 12:26
== END ==
PROVIDERS: PCP Internal Medicine; Referring Provider Nurse Practitioner Family; Visit Provider Nurse Practitioner Family
DX: S46.911A Strain of unspecified muscle, fascia and tendon at shoulder and upper arm level, right arm, initial encounter (principal); Z96.611 Presence of right artificial shoulder joint; X58.XXXA Exposure to other specified factors, initial encounter
CPT/HCPCS: 73030

== ENCOUNTER → 2024-04-02 14:31 | Outpatient (CLI) | payer OTHER, SELFPAY ==
--- NOTE | 2024-04-02 14:32 | DI.CT.S_ITS ---
PROCEDURE: CT HEAD/BRAIN WO CON INDICATIONS: dizziness TECHNIQUE: Noncontrast 4.5 mm thick angled axial sections acquired from the foramen magnum to the vertex, with coronal and sagittal reformats. For radiation dose reduction, the following was used: automated exposure control, adjustment of mA and/or kV according to patient size. COMPARISON: [facility], CT, CT HEAD WITHOUT CONTRAST, 03/23/2024, 12:36. FINDINGS: Image quality: Diagnostic. CSF spaces: Basal cisterns are patent. No extra-axial fluid collections. The ventricles are symmetric in size and shape. Brain: No intracranial bleeds or masses. There is cerebral volume loss for age, with resultant ventricular and sulcal prominence. There are periventricular and deep white matter chronic small vessel ischemic changes. There is intracranial internal carotid artery atherosclerosis. Skull and face: Soft tissue scalp hematoma can be seen posteriorly and on the right. No underlying calvarial fracture can be seen. Calvarium and visualized facial bones appear intact, without suspicious lesions. Sinuses: Visualized sinuses and mastoids are clear. IMPRESSION: Soft tissue scalp hematoma seen posteriorly and on the right, which is improved compared to the recent prior outside CT. No acute intracranial hemorrhage is seen. No acute intracranial pathology. Dictated by: Jimenez Martinez M.D. on 04/02/2024 at 14:46 Approved by: Jimenez Martinez M.D. on 04/02/2024 at 14:48
== END ==
LOC: CT 14:32
PROVIDERS: PCP Internal Medicine; Referring Provider Internal Medicine; Visit Provider Internal Medicine
DX: S09.90XA Unspecified injury of head, initial encounter (principal); S00.03XA Contusion of scalp, initial encounter; I65.29 Occlusion and stenosis of unspecified carotid artery; X58.XXXA Exposure to other specified factors, initial encounter
CPT/HCPCS: 70450

== ENCOUNTER → 2024-04-28 15:07 | Outpatient (CLI) | payer OTHER, SELFPAY ==
--- NOTE | 2024-04-28 15:09 | DI.NM.S_ITS ---
PROCEDURE: NM ROGERIO PERF SPECT R&S PHARM Rest and pharmacological stress myocardial perfusion SPECT with gated imaging and ejection fraction RADIOPHARMACEUTICAL: 25.1 mCi Tc-99m tetrafosmin IV at rest and 24.6 mCi Tc-99m tetrafosmin IV at peak effect of pharmacological stress. [id number] was performed. INDICATIONS: VT PQRS ATTESTATIONS: Measure 322 - Is this imaging test primarily performed on a low-risk surgery patient for preoperative evaluation within 30 days preceding their low-risk non-cardiac surgery? Low-risk surgery is defined as cardiac or myocardial infarction less than 1%, including (but not limited to) endoscopic procedures, superficial procedures, cataract surgery, and excisional breast surgery: Answer: No Measure 323 - Is this imaging test performed primarily for the monitoring of an asymptomatic patient who had percutaneous coronary intervention on the visit date or within 2 years of the visit date? Answer: No Measure 324 - Is this imaging test performed primarily for the initial detection and risk assessment on an asymptomatic, low coronary heart disease patient? Low CHD risk definition = clinicians should consider the maximum number of available patient factors used to estimate risk based on [place] (ATP III criteria), typically age, gender, diabetes, smoking status, and use of blood pressure medication, and integrate age appropriate estimates for missing elements, such as LDL or standard blood pressure. Answer: No TECHNIQUE: Radiopharmaceutical was injected at peak stress test, and also at rest. SPECT images were obtained. SPECT myocardial perfusion images were displayed in short axis, horizontal long axis, and vertical long axis views. Gated images were reviewed using [employer] software. COMPARISON: None. CARDIAC STRESS: A pharmacologic stress test was performed under the supervision of an attending staff, using an infusion of 0.4 mg Lexiscan IV. Hemodynamic data: There is normal blood pressure and heart rate response to pharmacologic stress. Symptoms: The patient denied anginal chest pain. Aminophylline: None EKG: Nondiagnostic for ischemia. Underlying sinus with atrial sensed ventricular paced rhythm and 100% capture. FINDINGS: Raw data: There is good myocardial uptake of radiotracer. No significant motion artifacts. Vsjt-ti-kaxao ratio is 0.33 (normal is less than 0.38 for tetrafosmin tracer). Left ventricle function: Gated images demonstrate normal left ventricular wall thickening. No segmental wall motion abnormalities. No transient ischemic dilation; TID is 1.03 (normal less than 1.3). Left ventricle resting end diastolic volume is 176 mL. Left ventricle stress ejection fraction is 50; normal range is above 45%. Myocardial perfusion: Rest images demonstrated moderate to severe hypoperfusion in the inferior segment. With stress and prone images, the same moderate to severe perfusion defect is noted in the inferior segment. However there was mild to moderate hypoperfusion in the inferoapical segment of both the stress and prone images. IMPRESSION: Abnormal Lexiscan myocardial perfusion scan due to a nontransmural inferior wall infarction with moderate jareth-infarct ischemia of the inferoapical segment. Dictated by: Loi Yoon M.D. on 04/29/2024 at 16:57 Approved by: Loi Yoon M.D. on 04/29/2024 at 17:05
== END ==
PROVIDERS: PCP Internal Medicine; Referring Provider Internal Medicine; Visit Provider Internal Medicine
DX: I47.20 Ventricular tachycardia, unspecified (principal); R94.39 Abnormal result of other cardiovascular function study
CPT/HCPCS: 78452; 93017; A9502; J2785

== ENCOUNTER → 2024-05-20 09:08 | Outpatient (CLI) | payer OTHER, SELFPAY ==
[2024-05-20 09:35] LABS: Add Manual Diff / Slide Review NO; Basophils Absolute Auto 100 /uL (0-100); Eosinophils Absolute Auto 200 /uL (0-450); Eosinophils Percent Auto 3.8 % (2-4); Hemoglobin 13.4 g/dL (13.5-17.5); Lymphocytes Absolute Auto 1100 /uL (1100-4500); Lymphocytes Percent Auto 19.7 % (25-40); Mean Corpuscular HGB Conc 33.6 % (30-36); Mean Corpuscular Hemoglobin 29.8 PG (26-34); Mean Corpuscular Volume 88.8 fL (80-100); Monocytes Absolute Auto 400 /uL (0-900); Monocytes Percent Auto 7.1 % (3-14); Neutrophils Absolute Auto 4000 /uL (1500-7000); Neutrophils Percent Auto 68.4 % (50-75); Platelet Count 212 X10^3/uL (150-400); Red Cell Distribution Width 15.6 % (11.6-14.8); White Blood Cell Count 5.8 X10^3/uL (4.5-11.0)
[2024-05-20 09:49] LABS: Alanine Aminotransferase 21 IU/L (<50); Albumin Globulin Ratio 1.7 (1.0-2.8); Alkaline Phosphatase 76 U/L (38-126); Aspartate Aminotransferase 23 IU/L (17-59); BUN Creatinine Ratio 25.5 (6-22); Bilirubin Total 0.6 mg/dL (0.2-1.3); Blood Urea Nitrogen 27 mg/dL (9-20); Calcium 9.1 mg/dL (8.4-10.2); Carbon Dioxide 29 mmol/L (22-32); Chloride 106 mmol/L (98-107); Estimated Glomerular Filt Rate > 60 mL/min (>60); Globulin 2.3 g/dL (1.7-4.1); Glucose 134 mg/dL (80-110); HEMOLYSIS < 15 (0-50); Potassium 3.9 mmol/L (3.4-5.1); Sodium 139 mmol/L (137-145); Total Protein 6.3 g/dL (6.3-8.2)
== END ==
PROVIDERS: PCP Internal Medicine; Referring Provider Internal Medicine; Visit Provider Internal Medicine
DX: Z79.899 Other long term (current) drug therapy (principal)
CPT/HCPCS: 36415; 80053; 85025

== ENCOUNTER 2024-05-27 12:20 | Emergency (ER) | payer OTHER, SELFPAY ==
[2024-05-27 12:37] VITALS: BP 127/62; PULSE 60; RESP 16; TEMP 36.4; O2SAT 96; BMI 31.5
--- NOTE | 2024-05-27 13:21 | ED_ITS ---
HPI - Wound/Laceration <Lexi Bradley PA-C - Last Filed: 05/27/24 13:53> General Chief Complaint: Wound/Laceration Stated Complaint: eye laceration Time Seen by Provider: 05/27/24 13:21 History of Present Illness HPI narrative: Mr. Burrows is a very pleasant 79-year-old male who presents to the emergency department for a laceration under his right eye that occurred just prior to arrival. Patient states he was working on a car engine when he accidentally hit his face on the lifted king of the car. He sustained a laceration below the right eye. He did not hit his eye itself. Denies visual disturbance, headache, loss of consciousness, nausea or vomiting after the event. His Tdap is up-to-date and he has not on any blood thinners. Bleeding is controlled with direct pressure on exam. Related Data Home Medications Medication Instructions Recorded Confirmed amiodarone 200 mg tablet 200 mg PO DAILY 04/01/24 04/01/24 fluticasone 100 mcg-salmeterol 50 1 inh inhalation DAILY 04/01/24 04/01/24 mcg/dose blistr powdr for inhalation sacubitril 24 mg-valsartan 26 mg 1 tab PO BID 04/01/24 04/01/24 tablet (Entresto) Previous Rx's Medication Instructions Recorded albuterol sulfate 90 mcg/actuation 1 - 2 puff inhalation Q4-6H PRN 06/23/23 aerosol inhaler (ProAir HFA) shortness of breath or wheezing #18 grams tamsulosin 0.4 mg capsule (Flomax) 0.4 mg PO DAILY #90 caps 02/01/24 rosuvastatin 10 mg tablet (Crestor) 10 mg PO QDAY #90 tabs 02/19/24 Allergies Allergy/AdvReac Type Severity Reaction Status Date / Time No Known Drug Allergies Allergy Verified 04/01/24 14:31 Review of Systems <Lexi Bradley PA-C - Last Filed: 05/27/24 13:53> Review of Systems ROS Unobtainable: All systems reviewed & are unremarkable except as noted in HPI and below Patient History <Lexi Bradley PA-C - Last Filed: 05/27/24 13:53> Medical History ICD (implantable cardioverter-defibrillator) in place NICM (nonischemic cardiomyopathy) COVID-19 Complete heart block Paroxysmal atrial fibrillation Mixed hyperlipidemia Ventricular premature depolarization Cardiac dysrhythmia H/O adenomatous polyp of colon Mild intermittent asthma without complication (09/13/15) Hyperglycemia (09/13/15) Benign prostatic hyperplasia with lower urinary tract symptoms (10/10/15) Intraventricular conduction delay (10/10/15) Surgical History S/P implantation of automatic cardioverter/defibrillator (AICD) (~01/2020) S/P shoulder replacement (~03/2018) History of third molar tooth extraction Family History Brother Pacemaker Father Pacemaker Heart disease Stroke Social History household members: spouse Smoking Status: Never smoker Smoking Status: Never smoker Exam <Lexi Bradley PA-C - Last Filed: 05/27/24 13:53> Narrative Exam Narrative: GENERAL: 79 year old patient appears stated age. Well-developed patient, in no acute distress. HEAD: 4 cm linear, superficial laceration below the right eye medial to the zygomatic arch. No involvement of the eye or eyelids. Bleeding controlled on exam. Normocephalic. EYES: PERRL. Extraocular motions intact. No scleral icterus. No injection or drainage. ENT: Nose without bleeding, purulent drainage. NECK: Trachea midline. Cervical ROM intact. CARDIOVASCULAR: Regular rate RESPIRATORY: ?Nonlabored respirations. ?Speaking in clear, full sentences. ? BACK: Nontender without deformity or crepitance. NEURO: AOx3. ?Clear speech. ?Moves all 4 extremities appropriately. Initial Vital Signs Initial Vital Signs: Vital Signs Temperature 97.6 F 05/27/24 12:37 Pulse Rate 60 05/27/24 12:37 Respiratory Rate 16 05/27/24 12:37 Blood Pressure 127/62 05/27/24 12:37 Pulse Oximetry 96 05/27/24 12:37 Oxygen Delivery Method Room Air 05/27/24 12:37 <Cortney Zuluaga DO - Last Filed: 05/29/24 08:21> Initial Vital Signs Initial Vital Signs: Vital Signs Temperature 97.6 F 05/27/24 12:37 Pulse Rate 60 05/27/24 12:37 Respiratory Rate 16 05/27/24 12:37 Blood Pressure 127/62 05/27/24 12:37 Pulse Oximetry 96 05/27/24 12:37 Oxygen Delivery Method Room Air 05/27/24 12:37 Procedures <Lexi Bradley PA-C - Last Filed: 05/27/24 13:53> Laceration Repair Laceration 1: Time of procedure: 13:45 Site: face Side (If applicable): right Size (cm): 4 Description: linear Depth: simple, single layer Pre-repair: wound explored and irrigated extensively (Cleansed with Betadine) Skin layer closed with: steri-strips (10) Course <Lexi Bradley PA-C - Last Filed: 05/27/24 13:53> Vital Signs Vital signs: Vital Signs - 8 hr 05/27/24 12:37 Temperature 97.6 F Pulse Rate 60 Respiratory Rate 16 Blood Pressure 127/62 Pulse Oximetry 96 Oxygen Delivery Method Room Air <Cortney Zuluaga DO - Last Filed: 05/29/24 08:21> Vital Signs Vital signs: Vital Signs - 8 hr 05/27/24 12:37 Temperature 97.6 F Pulse Rate 60 Respiratory Rate 16 Blood Pressure 127/62 Pulse Oximetry 96 Oxygen Delivery Method Room Air MDM - Wound/Laceration <Lexi Bradley PA-C - Last Filed: 05/27/24 13:53> MDM Narrative Medical decision making narrative: 79-year-old male presents to the emergency department for a superficial laceration that occurred on his face below his right eye just prior to arrival after hitting it on the king of his car. Tdap up-to-date, not on anticoagulation. His contributed to the history. Differential diagnosis includes but is not limited to laceration, abrasion, facial trauma, etc. On exam patient is in no acute distress, nontoxic appearing, vital signs within normal limits. He has a 4 cm linear laceration on his face below his right eye. Laceration is not involving the eye or the ocular area itself but is more on the cheek. After shared decision-making with the patient, we will reapproximate wound using Steri-Strips and Dermabond. Wound was cleansed and irrigated extensively and repaired using 10 Steri-Strips and Dermabond. A nonadherent dressing was applied over top. Patient tolerated the procedure well. We discussed proper wound care and signs and symptoms of infection to look out for. Patient verbalized understanding of all information and is stable for discharge. Discharge Plan Departure Patient Disposition: Home Clinical Impression: Laceration of face Qualifiers: Encounter type: initial encounter Qualified Code(s): S01.81XA - Laceration without foreign body of other part of head, initial encounter Instructions: DI for Minor Laceration Activity Restrictions/Additional Instructions: Today you had a laceration to your face. We have placed skin tape and skin glue. Please avoid peeling off the taper glue and avoid putting on lotions or moisturizers as this may remove the adhesive. Please keep the dressing on your wound clean, dry, and intact for the next 24 hours. After this time, you may remove the dressing to inspect the wound and gently clean the surrounding areas. Keep the wound clean and covered. Avoid soaking the wound in any water such as a bath, pool, or the ocean. If you develop any signs of wound infection such as increased redness, pus drainage, streaking redness, or fevers, please return to the ER immediately for evaluation. Once sutures are removed and the wound has healed, apply sunscreen daily to reduce the appearance of scars. Please follow up with your primary care doctor within the next 7 days for ER follow-up. (If you do not have a PCP you can call [phone]. ?to schedule an appointment with an [facility] Primary Care Provider) IF YOU DEVELOP ANY NEW OR WORSENING SYMPTOMS, RETURN TO THE ER! Please read the attached instructions, they highlight more specific treatments and interventions for you at home. Thank you for letting me participate in your care, Lexi Bradley PA-C Prescriptions: No Action albuterol sulfate [ProAir HFA] 90 mcg/actuation HFA aerosol inhaler 1 - 2 puff inhalation Q4-6H PRN (Reason: shortness of breath or wheezing) Qty: 18 6RF Rx Instructions: Additionally uses 1 puff as needed before bedtime. tamsulosin [Flomax] 0.4 mg capsule 0.4 mg PO DAILY Qty: 90 3RF rosuvastatin [Crestor] 10 mg tablet 10 mg PO QDAY Qty: 90 3RF amiodarone 200 mg tablet 200 mg PO DAILY Entresto 24-26 mg tablet 1 tab PO BID fluticasone propion-salmeterol 100-50 mcg/dose blister with device 1 inh inhalation DAILY Referrals: Bobby Salazar MD [Primary Care Provider] - Stand Alone Forms: Patient Portal/API/Survey ED Sign-out <Cortney Zuluaga DO - Last Filed: 05/29/24 08:21> Cosign ED Attending Aida Attestation: I was immediately available in the department for consultation.
== END 2024-05-27 14:01 | disposition home or self-care (01) ==
PROVIDERS: Emergency Provider Physician Assistant; PCP Internal Medicine
DX: S01.81XA Laceration without foreign body of other part of head, initial encounter (principal); W22.8XXA Striking against or struck by other objects, initial encounter
CPT/HCPCS: 99282

== ENCOUNTER → 2024-07-21 06:39 | Outpatient (CLI) | payer OTHER, SELFPAY ==
--- NOTE | 2024-07-21 06:41 | DI.ECHO.S_ITS ---
[place] +---------+ Hospital : : [address] : : [place] : : [id number] : : Phone: [phone] Echocardiogram Report + + :Name: JAVIER HAMILTON Study Date: 07/21/2024 Height: 70 in : :[facility] ReadingLocation: Weight: 220 lb : : Gender: Male BSA: 2.2 m2 : :: 1945 Age: 79 yrs BP: 132/60 mmHg: :Reason For Study: CHRONIC SYSTOLIC HEART FAILURE : :Ordering Physician: CATERINA YOON Performed By: Albino Robbins : :Referring: CATERINA YONO : + + Interpretation Summary 1. The left ventricular contractility is mildly compromised. Estimate ejection fraction is approximately 45 to 50% with mild inferolateral hypokinesis. Mild concentric LVH. Unable to comment on diastolic function. Normal left ventricular cavity size. 2. The right ventricular contractility is normal. Normal right ventricular cavity size. 3. No significant valvular abnormalities noted in limited views. 4. No obvious intracardiac masses or thrombi. Hyperechogenic linear densities noted in right atrium and right ventricle consistent with pacemaker wires. 5. No hemodynamically significant pericardial effusion. Conclusion: Mildly compromised left ventricular systolic function. When compared with previous echocardiogram, there is an improvement in the left ventricular systolic function. Procedure: A two-dimensional transthoracic echocardiogram with color flow and Doppler was performed in limited views only. The study quality was technically good. Comparison is made with the echocardiogram of 12/23/2023. The patient has a paced rhythm. Left Ventricle: The left ventricle is normal in size. Left ventricular wall thickness is mildly increased. The ejection fraction is estimated to be 45- 50%. Mitral Valve: There is trace mitral regurgitation. Aortic Valve: No aortic regurgitation is present. Tricuspid Valve: There is trace tricuspid regurgitation. The right ventricular systolic pressure is estimated to be at least 32 mmHg based on an estimated right atrial pressure of 3 mm Hg. Great Vessels: The IVC is of normal diameter and collapses greater than 50% with a sniff. This suggests a low right atrial pressure of 3 mm Hg. MMode/2D Measurements & Calculations LVIDd: 5.2 cm LVIDs: 3.8 cm FS: 26.3 % IVSd: 1.1 cm LVPWd: 1.1 cm LV meza. diameter/BSA (cm/m^2): 2.4 LV sys. diameter/BSA (cm/m^2): 1.8 Doppler Measurements & Calculations TR max fany: 270.0 cm/sec TR max P.2 mmHg Reading Physician:
== END ==
PROVIDERS: PCP Internal Medicine; Referring Provider Internal Medicine; Visit Provider Internal Medicine
DX: I50.22 Chronic systolic (congestive) heart failure (principal)
CPT/HCPCS: 93307

== ENCOUNTER → 2024-10-24 09:02 | Outpatient (CLI) | payer OTHER, SELFPAY | PROVIDERS: PCP Internal Medicine; Visit Provider Nurse Practitioner Family | DX: S21.209A Unspecified open wound of unspecified back wall of thorax without penetration into thoracic cavity, initial encounter (principal); X58.XXXA Exposure to other specified factors, initial encounter | CPT/HCPCS: 87070; 87205 ==

== ENCOUNTER → 2024-11-01 08:52 | Outpatient (CLI) | payer OTHER, SELFPAY | LOC: LAB 08:53 | PROVIDERS: PCP Internal Medicine; Visit Provider Nurse Practitioner Family | DX: L02.91 Cutaneous abscess, unspecified (principal) | CPT/HCPCS: 87070; 87075; 87077; 87205 ==

== ENCOUNTER → 2024-12-05 09:32 | Outpatient (CLI) | payer OTHER, SELFPAY ==
--- NOTE | 2024-12-05 09:33 | DI.RAD.S_ITS ---
PROCEDURE: XR SHOULDER RT MIN 2V INDICATIONS: right shoulder pain TECHNIQUE: Three views of the right shoulder were acquired. COMPARISON: [facility], CR, XR SHOULDER RT MIN 2V, 02/17/2024, 8:44. FINDINGS: Bones: There are no osseous abnormalities. Acromioclavicular and glenohumeral joints: Glenohumeral prosthesis remains anatomically aligned without loosening or other complication. Mild acromioclavicular degeneration. Without loosening or other complication. Few tiny calcifications seen in the superior aspect glenohumeral joint Mild acromioclavicular degeneration. Soft tissues: No soft tissue swelling, calcification or mass. IMPRESSION: Glenohumeral prostheses unremarkable. Dictated by: Bobby Prather M.D. on 12/06/2024 at 11:18 Approved by: Bobby Prather M.D. on 12/06/2024 at 11:19
== END ==
PROVIDERS: PCP Internal Medicine; Referring Provider Internal Medicine; Visit Provider Internal Medicine
DX: M19.011 Primary osteoarthritis, right shoulder (principal); M25.511 Pain in right shoulder; Z96.611 Presence of right artificial shoulder joint
CPT/HCPCS: 73030

== ENCOUNTER → 2025-03-08 10:30 | Outpatient (CLI) | payer OTHER, SELFPAY ==
[2025-03-08 12:27] LABS: Alanine Aminotransferase 23 IU/L (<50); Alkaline Phosphatase 63 U/L (38-126); Blood Urea Nitrogen 21 mg/dL (9-20); Carbon Dioxide 26 mmol/L (22-32); Estimated Glomerular Filt Rate > 60 mL/min (>60); HEMOLYSIS < 15 (0-50)
[2025-03-08 12:29] LABS: Albumin 4.0 g/dL (3.5-5.0); Albumin Globulin Ratio 1.6 (1.0-2.8); Calcium 9.2 mg/dL (8.4-10.2); Chloride 103 mmol/L (98-107); Globulin 2.5 g/dL (1.7-4.1); Glucose 105 mg/dL (70-99); Potassium 4.4 mmol/L (3.4-5.1); Sodium 138 mmol/L (137-145); Total Protein 6.5 g/dL (6.3-8.2)
[2025-03-08 13:00] LABS: TSH w/ Reflex to FT4 0.94 uIU/mL (0.47-4.68)
== END ==
PROVIDERS: PCP Internal Medicine; Referring Provider Internal Medicine; Visit Provider Nurse Practitioner Family
DX: I47.20 Ventricular tachycardia, unspecified (principal)
CPT/HCPCS: 36415; 80053; 84443

== ENCOUNTER → 2025-04-14 15:12 | Outpatient (CLI) | payer OTHER, SELFPAY ==
[2025-04-14 15:37] LABS: Add Manual Diff / Slide Review NO; Hematocrit 43.3 % (41-53); Hemoglobin 14.6 g/dL (13.5-17.5); Lymphocytes Absolute Auto 1400 /uL (1100-4500); Mean Corpuscular HGB Conc 33.8 % (30-36); Mean Corpuscular Hemoglobin 30.6 PG (26-34); Mean Corpuscular Volume 90.8 fL (80-100); Platelet Count 222 X10^3/uL (150-400)
[2025-04-14 16:08] LABS: HEMOLYSIS < 15 (0-50); Iron 85 ug/dL (49-181)
[2025-04-14 16:10] LABS: Alanine Aminotransferase 22 IU/L (<50); Albumin 4.2 g/dL (3.5-5.0); Albumin Globulin Ratio 1.7 (1.0-2.8); Alkaline Phosphatase 69 U/L (38-126); Blood Urea Nitrogen 25 mg/dL (9-20); Calcium 9.1 mg/dL (8.4-10.2); Carbon Dioxide 26 mmol/L (22-32); Chloride 104 mmol/L (98-107); Estimated Glomerular Filt Rate > 60 mL/min (>60); Globulin 2.5 g/dL (1.7-4.1); Glucose 97 mg/dL (70-99); HEMOLYSIS < 15 (0-50); Potassium 4.1 mmol/L (3.4-5.1); Sodium 138 mmol/L (137-145); Total Protein 6.7 g/dL (6.3-8.2)
[2025-04-14 16:18] LABS: Percent Iron Saturation 34 % (20-50); Total Iron Binding Capacity 247 ug/dL (261-462); Transferrin 218 mg/dL (206-381)
== END ==
LOC: LAB 15:12
PROVIDERS: PCP Internal Medicine; Referring Provider Internal Medicine; Visit Provider Internal Medicine
DX: E78.2 Mixed hyperlipidemia (principal); D64.9 Anemia, unspecified
CPT/HCPCS: 36415; 80053; 83540; 83550; 85025

== ENCOUNTER → 2025-06-13 10:46 | Outpatient (CLI) | payer OTHER, SELFPAY ==
[2025-06-13 11:13] LABS: Add Manual Diff / Slide Review NO; Hematocrit 40.6 % (41-53); Hemoglobin 13.4 g/dL (13.5-17.5); Lymphocytes Absolute Auto 900 /uL (1100-4500); Mean Corpuscular HGB Conc 33.0 % (30-36); Mean Corpuscular Hemoglobin 30.1 PG (26-34); Mean Corpuscular Volume 91.2 fL (80-100); Platelet Count 209 X10^3/uL (150-400)
[2025-06-13 11:41] LABS: Alanine Aminotransferase 25 IU/L (<50); Albumin 3.9 g/dL (3.5-5.0); Albumin Globulin Ratio 1.6 (1.0-2.8); Alkaline Phosphatase 60 U/L (38-126); Blood Urea Nitrogen 32 mg/dL (9-20); Calcium 9.0 mg/dL (8.4-10.2); Carbon Dioxide 27 mmol/L (22-32); Chloride 108 mmol/L (98-107); Estimated Glomerular Filt Rate > 60 mL/min (>60); Globulin 2.5 g/dL (1.7-4.1); Glucose 128 mg/dL (70-99); HEMOLYSIS < 15 (0-50); Potassium 4.1 mmol/L (3.4-5.1); Sodium 142 mmol/L (137-145); Total Protein 6.4 g/dL (6.3-8.2)
[2025-06-13 12:13] LABS: TSH w/ Reflex to FT4 1.06 uIU/mL (0.47-4.68)
[2025-06-13 14:08] LABS: Microalbumi Creatinin Ratio Ur 29.0 ug/mg CR (<30)
== END ==
PROVIDERS: PCP Internal Medicine; Referring Provider Family Medicine; Visit Provider Family Medicine
DX: D50.9 Iron deficiency anemia, unspecified (principal); R09.89 Other specified symptoms and signs involving the circulatory and respiratory systems; I42.8 Other cardiomyopathies; E78.2 Mixed hyperlipidemia; R73.9 Hyperglycemia, unspecified; Z86.0100 Personal history of colon polyps, unspecified
CPT/HCPCS: 36415; 80053; 82043; 82570; 84443; 85025